=== PATIENT | female | born 1985 | race Caucasian/White ===

== ENCOUNTER 2020-06-21 19:10 | Emergency (ER) | payer OTHER ==
[~2020-06-21] VITALS: Ht 160 cm; Wt 71.7 kg
[~2020-06-21 19:10] MED LIST: CIPR500 PO; DIAZ5 PO; ESTNORT; FEXO180; FLUSAL2505; HYDACE10B PO; HYDACE5 PO; HYDACE5325 PO; MEDR150I IM; MULVITMINE PO; OXYACE5T PO; PROM25 PO; RXHYD5325 PO; RXLORA1 PO
[2020-06-21] MEDS ORDERED: MELO7.5 (19:31)
== END 2020-06-21 20:39 | disposition home or self-care (01) ==
LOC: ER 19:10
DX: S83.207A Unspecified tear of unspecified meniscus, current injury, left knee, initial encounter (principal); Z88.1 Allergy status to other antibiotic agents; X50.1XXA Overexertion from prolonged static or awkward postures, initial encounter
CPT/HCPCS: 73562-LT; 99283; A9270

== ENCOUNTER 2021-10-12 09:49 | Day surgery (SDC) | payer BC, OTHER ==
[~2021-10-12] VITALS: Ht 160 cm; Wt 74.5 kg
[~2021-10-12 09:49] MED LIST changes: +MELO7.5
--- NOTE | 2021-10-12 11:39 | NUR ---
10/12/21 1139 ANDREY PARKER OPEN FLUIDS WHEN BP WAS A BIT LOW. RECOVERED TO BASELINE
== END 2021-10-12 12:23 | disposition home or self-care (01) ==
LOC: ORSCSDS 09:49
PROVIDERS: Obstetrics & Gynecology
PROC: 0UDB7ZX Extraction of Endometrium, Via Natural or Artificial Opening, Diagnostic (ICD-10-PCS; principal; 2021-10-12 11:00)
PROC: 0UBC7ZX Excision of Cervix, Via Natural or Artificial Opening, Diagnostic (ICD-10-PCS; principal; 2021-10-12 11:00)
DX: N87.0 Mild cervical dysplasia (principal); N72 Inflammatory disease of cervix uteri; A63.0 Anogenital (venereal) warts; Z87.891 Personal history of nicotine dependence; I82.409 Acute embolism and thrombosis of unspecified deep veins of unspecified lower extremity; F32.A Depression, unspecified; F41.9 Anxiety disorder, unspecified; Z79.3 Long term (current) use of hormonal contraceptives
CPT/HCPCS: 88305; A9270; J0171; J1885; J2250; J2704; J3010; J7120